=== PATIENT | female | born 1980 | race Caucasian/White ===

== ENCOUNTER → 2024-04-25 19:41 | Outpatient (REF) | payer BC, SELFPAY | LOC: WDC 19:41 | PROVIDERS: ATTENDING PHYSICIAN Family Medicine | DX: Z12.31 Encounter for screening mammogram for malignant neoplasm of breast (principal) | CPT/HCPCS: 77063; 77067 ==

== ENCOUNTER → 2024-04-30 10:12 | Outpatient (REF) | payer BC, SELFPAY | LOC: WDC 10:12 | PROVIDERS: ATTENDING PHYSICIAN Family Medicine | DX: R92.8 Other abnormal and inconclusive findings on diagnostic imaging of breast (principal) | CPT/HCPCS: 76642 ==

== ENCOUNTER → 2024-05-10 07:48 | Outpatient (REF) | payer BC, SELFPAY | LOC: EMG 07:48 | PROVIDERS: ATTENDING PHYSICIAN Orthopaedic Surgery Hand Surgery; FAMILY PHYSICIAN Family Medicine | DX: G56.22 Lesion of ulnar nerve, left upper limb (principal); G35 Multiple sclerosis; R20.0 Anesthesia of skin | CPT/HCPCS: 95886; 95909 ==

== ENCOUNTER → 2024-10-16 11:05 | Outpatient (REF) | payer BC, SELFPAY | LOC: WDC 11:05 | PROVIDERS: ATTENDING PHYSICIAN Family Medicine | DX: R92.8 Other abnormal and inconclusive findings on diagnostic imaging of breast (principal) | CPT/HCPCS: 77061; 77065 ==

== ENCOUNTER → 2025-03-06 09:58 | Outpatient (REF) | payer BC, SELFPAY | LOC: HWRAD 09:58 | PROVIDERS: ATTENDING PHYSICIAN Family Medicine | DX: R93.2 Abnormal findings on diagnostic imaging of liver and biliary tract (principal) | CPT/HCPCS: 76700 ==